=== PATIENT | female | born 1950 | race Caucasian/White ===

== ENCOUNTER 2018-07-18 10:06 | Emergency (ER) | payer MEDICARE ==
[~2018-07-18] VITALS: Ht 162.6 cm; Wt 81.8 kg
[~2018-07-18 10:06] MED LIST: CALCIUM500 M3 PO; COD LIVER O1 PO; CRANBERRY1 TA1 PO; FISH OIL1000 MG PO; HYDROCO/APAP1 TA9 PO; KLONOPIN0.5 MG PO; LEVAQUIN500 MG PO; MELOXICAM7.5 MG PO; OMEPRAZOLE20 M2 PO; PERCOCET 5/325M1 TAB PO; TRIMETHOPRIM100 MG PO; VITAMIN E400 UNIT PO
[2018-07-18] MEDS ORDERED: [UNRECOGNIZED DRUG - REMARK] (10:18)
[2018-07-18] MEDS ORDERED: DIURETIC PO (10:18)
[2018-07-18 10:31] LABS: URINE BILIRUBIN - DIPSTICK NEGATIVE (NEGATIVE); URINE BLOOD DIPSTICK LARGE (NEGATIVE); URINE COLOR YELLOW; URINE GLUCOSE - DIPSTICK NEGATIVE (NEGATIVE); URINE KETONE NEGATIVE (NEGATIVE); URINE NITRITE - DIPSTICK NEGATIVE (Negative); URINE PH 5.5 (4.5-8.0); URINE PROTEIN - DIPSTICK NEGATIVE (NEG-TRACE); URINE SPECIFIC GRAVITY 1.025; URINE UROBILINOGEN - DIPSTICK 0.2 E.U./dL (0.2)
[2018-07-18 10:32] LABS: URINE CLARITY HAZY; URINE LEUK ESTERASE MODERATE (NEGATIVE)
[2018-07-18 10:33] LABS: URINE BACTERIA MODERATE hpf; URINE EPITHELIAL CELLS MODERATE EPI/hpf (0-FEW); URINE RBC 25-50 RBC/hpf (0-5)
[2018-07-18] MEDS ORDERED: CIPROFLOXACN500 MG PO (10:38)
[2018-07-18 10:42] VITALS: BP 149/71
== END 2018-07-18 10:42 | disposition home or self-care (01) ==
LOC: ED 10:06
PROVIDERS: Emergency Medicine
DX: N39.0 Urinary tract infection, site not specified (principal); B96.20 Unspecified Escherichia coli [E. coli] as the cause of diseases classified elsewhere; I25.2 Old myocardial infarction; N36.9 Urethral disorder, unspecified; Z87.440 Personal history of urinary (tract) infections

== ENCOUNTER → 2018-11-05 | Outpatient (REF) | payer MEDICARE ==
[~2018-11-05] MED LIST changes: +CIPROFLOXACN500 MG PO; +DIURETIC PO; +[UNRECOGNIZED DRUG - REMARK]
== END | disposition home or self-care (01) ==
LOC: STRESS 14:06 → NUCMED 14:15
PROVIDERS: ATTEND Internal Medicine
DX: R00.2 Palpitations (principal); I25.2 Old myocardial infarction; R60.0 Localized edema
CPT/HCPCS: A9502; J0706; J2785